=== PATIENT | male | born 1975 | race Caucasian/White ===

== ENCOUNTER → 2024-11-28 | Outpatient (CLI) | LOC: M SOG 06:44 | PROVIDERS: ATTEND Orthopaedic Surgery | DX: M25.562 Pain in left knee (principal); Z53.9 Procedure and treatment not carried out, unspecified reason ==

== ENCOUNTER → 2024-11-28 | Outpatient (CLI) | LOC: M SOG 11-27 16:44 | PROVIDERS: ATTEND Orthopaedic Surgery | DX: M25.562 Pain in left knee (principal); M17.0 Bilateral primary osteoarthritis of knee ==